=== PATIENT | male | born 1990 | race Caucasian/White ===

== ENCOUNTER 2021-07-19 19:40 | Emergency (ER) | payer SELFPAY ==
[~2021-07-19] VITALS: Ht 193 cm; Wt 27.0 kg
--- NOTE | 2021-07-19 20:51 | Diagnostic Imaging Report ---
EXAMINATION: Right ankle 3 views HISTORY: Fall COMPARISON: None available. FINDINGS: The alignment is normal. No fracture is seen. The mortise is intact. Talar dome is normal. Joint spaces are normal. IMPRESSION: 1. No fracture. Dictated by: Dictated on workstation # [id number]
--- NOTE | 2021-07-19 20:51 | Diagnostic Imaging Report ---
EXAMINATION: Right foot 3 views HISTORY: Fall and pain COMPARISON: None available. FINDINGS: There is soft tissue swelling overlying the dorsum of the foot. No acute fracture is seen. Joint spaces are normal. IMPRESSION: 1. Soft tissue swelling about the foot without acute fracture seen. Dictated by: Dictated on workstation # [id number]
--- NOTE | 2021-07-19 21:23 | ED Lower Extremity ---
General Chief Complaint: Lower Extremity Stated Complaint: FALL,RT FOOT PAIN Nursing Triage Note: Pt c/o right foot pain after getting it caught in a baby gait while he was hold his kid. Pt denies right upper leg or knee pain. Swelling noted to top of pt right foot. 2+ DP pulses. Source: patient History of Present Illness Date Seen by Provider: Jul 19, 2021 Time Seen by Provider: 21:23 Initial Comments 30-year-old male with complaints of pain and swelling to the right foot and ankle. He states he was carrying his child when he tried to step over a baby gate at home. His foot got caught on the top of the baby gate and when he tried to lift his foot to get her off of the gait the gait came with his foot and s hoe. He fell and because he was holding his child he did not use his arms to help break his fall. He had his left knee going to the back of his right calf and put off his weight onto the right foot. He heard multiple popping noises and had severe pain. He states initially his foot was angled outward but went back on its own. He had not taken anything for pain but has had the foot elevated as much as possible. he had severe pain and increasing swelling to his foot since the fall Location Injury Occurred: home Onset: this evening Severity: severe Pain/Injury Location: right foot, right ankle Method of Injury: fell Modifying Factors: Worse With Movement Allergies and Home Medications Allergies Coded Allergies: No Known Drug Allergies (Unverified , 07/19/21) Patient Home Medication List Home Medication List Reviewed: Yes Hydrocodone/Acetaminophen (Hydrocodone-Acetamin 5-325 mg) 1 Each Tablet, 1 TAB PO Q6H PRN for PAIN-SEVERE (8-10) Prescribed by: TAINA PENDLETON on 07/19/21 0442 Review of Systems Constitutional: No chills, No fever EENTM: no symptoms reported Respiratory: no symptoms reported Cardiovascular: no symptoms reported Gastrointestinal: no symptoms reported Genitourinary: no symptoms reported Musculoskeletal: see HPI Skin: No change in color Psychiatric/Neurological: Anxiety Past Rtjcnnd-Cligqs-Ncilru Hx Patient Social History Tobacco Use?: Yes Tobacco type used: Cigarettes Smoking Status: Current Everyday Smoker Use of E-Cig and/or Vaping dev: No Substance use?: No Alcohol Use?: Yes Alcohol type: Beer Alcohol Frequency: Several times a month Pt feels they are or have been: No Immunizations Up To Date Influenza Vaccine Up-to-Date: No; Not Current Past Medical History Surgeries: No Physical Exam Vital Signs Vital Signs - First Documented 07/19/21 20:20 Temp 36.7 Pulse 100 Resp 20 B/P (MAP) 158/87 (110) O2 Delivery Room Air Capillary Refill : Less Than 3 Seconds Height, Weight, BMI Height: '" Weight: lbs. oz. 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, no motor/sensory deficits, alert, oriented x 3 Skin: normal color, warm/dry Progress/Results/Core Measures Results/Orders My Orders Orders - TAINA PEDNLETON MD Foot 3 View Right (07/19/21 20:21) Ankle 3 View Right (07/19/21 20:21) Ice: Apply To Affected Area (07/19/21 20:21) Elevate Affected Extremity (07/19/21 20:21) Ibuprofen Tablet (Motrin Tablet) (07/19/21 21:36) Ct Extremity Lower Right Wo (07/19/21 21:36) Crutches (07/19/21 23:10) Ed Ortho/Other Supplies Order (07/19/21 23:10) Orthopedic Equiment (07/19/21 23:10) Rx-Hydrocodone/Apap 5-325 Mg (Rx-Vicodin (07/19/21 23:45) Medications Given in ED Current Medications Medications Dose Ordered Sig/Arin Route Start Time Stop Time Status Last Admin Dose Admin Acetaminophen/ Hydrocodone Bitart 1 ea Q6H PRN PO 07/19/21 23:45 07/19/21 23:52 DC 07/19/21 23:45 1 EA Vital Signs/I&O 07/19/21 07/19/21 20:20 23:38 Temp 36.7 Pulse 100 80 Resp 20 18 B/P (MAP) 158/87 (110) 140/78 O2 Delivery Room Air Room Air Blood Pressure Mean: 110 Progress Progress Note #1: Progress Note X-rays of the right foot and ankle were obtained to evaluate for possible bony injury since the dislocation was having pain. Patient was declining pain medicine until more was done about the injury. Progress Note #2: Progress Note FurtherX-rays did not demonstrate any definite acute fracture in his foot or ankle. However, with the significant amount of pain and swelling to his right foot as well as him describing lateral angulation of the foot will obtain a CT scan to evaluate for possible Lisfranc fracture. Progress Note #3: Progress Note CT scan does show evidence of fracture to the proximal portion of his first and second metatarsals. This was concerning for Lisfranc fracture. Placed in a cam boot to help immobilize his foot. Crutches for helping with ambulation as he needs to be nonweightbearing. Stressed the importance of elevating his foot is high and as long as possible for him. Given the phone number for Dr. Garsia of the on-call orthopedic doctor for follow-up. Counseled to call and establish with primary clinic through [facility]. Diagnostic Imaging Diagonstic Imaging: Xray Plain Films/CT/US/NM/MRI: ankle Comments [facility] [place], [place] NAME: ESEQUIEL [facility]RISTIANSON [facility] REC#: [id number] PT STATUS: REG ER : 1990 PHYSICIAN: TAINA PENDLETON MD ADMIT DATE: 07/19/21/ER FS Signed Date of Exam:07/19/21 ANKLE 3 VIEW RIGHT EXAMINATION: Right ankle 3 views HISTORY: Fall COMPARISON: None available. FINDINGS: The alignment is normal. No fracture is seen. The mortise is intact. Talar dome is normal. Joint spaces are normal. IMPRESSION: 1. No fracture. Dictated by: Dictated on workstation # [id number] Dict: 07/19/212044 Trans: 07/19/212056 [facility] [id number] Interpreted by: LE WILKS MD Electronically signed by: LE WILKS MD 07/19/212056 Reviewed: Reviewed by Me Diagonstic Imaging: Xray Plain Films/CT/US/NM/MRI: other (foot) Comments [facility] [place], [place] NAME: ESEQUIEL [facility] REC#: [id number] PT STATUS: REG ER : 1990 PHYSICIAN: TAINA PENDLETON MD ADMIT DATE: 07/19/21/ER FS Signed Date of Exam:07/19/21 FOOT 3 VIEW RIGHT EXAMINATION: Right foot 3 views HISTORY: Fall and pain COMPARISON: None available. FINDINGS: There is soft tissue swelling overlying the dorsum of the foot. No acute fracture is seen. Joint spaces are normal. IMPRESSION: 1. Soft tissue swelling about the foot without acute fracture seen. Dictated by: Dictated on workstation # [id number] Dict: 07/19/212045 Trans: 07/19/212056 [facility] [id number] Interpreted by: LE WILKS MD Electronically signed by: LE WILKS MD 07/19/212056 Reviewed: Reviewed by Me Diagonstic Imaging: CT Plain Films/CT/US/NM/MRI: other (foot and ankle) Comments Impression: Suspect Lisfranc fracture with dislocation injury. Fracture of the proximal portion of the second metatarsal and likely base of the first metatarsal. Several small bone fragments in the midfoot region with indeterminate donor s ites. Read by radiologist Dr.Manal Sofiya MD at 2218 and faxed at 2224. Reviewed: Reviewed by Me Departure Impression Primary Impression: Lisfranc fracture Additional Impressions: Fracture of first metatarsal bone of right foot Qualified Codes: S92.314A - Nondisplaced fracture of first metatarsal bone, right foot, initial encounter for closed fracture Fracture of second metatarsal bone of right foot Qualified Codes: S92.324A - Nondisplaced fracture of second metatarsal bone, right foot, initial encounter for closed fracture Disposition: 01 HOME, SELF-CARE Condition: Stable Departure-Patient Inst. Decision time for Depature: 23:29 Referrals: NO,LOCAL PHYSICIAN (PCP) Primary Care Physician MARK ANTHONY GARSIA MD [facility] [place] Patient Instructions: Foot Fracture ED, How to Use Crutches, Walking Boot Add. Discharge Instructions: Keep your foot elevated above waist level as high and as long as you can tolerate it. Use the crutches in the boot to help stabilize the fracture in your right foot. You should be nonweightbearing and avoid stepping down on your right foot even in the boot. You can call Dr. Garsia with orthopedics at [phone] and let him know you had a Lisfranc fracture to your right foot. He should be able to review the x- rays and if this is beyond what he can treat and manage then he could help refer you to an orthopedic surgical specialist. Establish care with a primary care provider at [facility] to help with your continued pain as you would not be able to work for several months with foot injury All discharge instructions reviewed with patient and/or family. Voiced unde rstanding. Scripts Hydrocodone/Acetaminophen (Hydrocodone-Acetamin 5-325 mg) 1 Each Tablet 1 TAB PO Q6H PRN for PAIN-SEVERE (8-10) for 5 Days, #20 TAB 0 Refills Prov: TAINA PENDLETON MD 07/19/21 TAINA PENDLETON MD Jul 19, 2021 21:23
[2021-07-19] MEDS ORDERED: IBUPROFEN 800 MG (MOTRIN) TAB PO STA (21:36)
[2021-07-19] MEDS ORDERED: ACHD5005 PO (23:32)
[2021-07-19 23:38] VITALS: BP 140/78
--- NOTE | 2021-07-20 07:25 | Diagnostic Imaging Report ---
PROCEDURE: CT right lower extremity without contrast. TECHNIQUE: Axially acquired CT was obtained through the right lower extremity without intravenous contrast. Coronal and sagittal reformations were also performed. Auto Exposure Controls were utilized during the CT exam to meet ALARA standards for radiation dose reduction. INDICATION: Pain and swelling of the right foot. Fall. COMPARISON: Ankle and foot radiographs performed earlier the same date. FINDINGS: Acute fractures are seen involving the base of the 1st right metatarsal and base of the 2nd right metatarsal. No definite evidence of fracture is seen in the tarsal bones. Tiny osseous fragments are noted within the area of the mid foot. No significant malalignment of the right foot is seen at this time. The right ankle joint appears intact. No focal osseous lesions are seen. There is generalized soft tissue swelling in the right foot, greatest along the dorsum. No radiopaque foreign bodies. IMPRESSION: 1. Acute fractures involving the base of the 1st and 2nd right metatarsals. Given the location of these fractures there is concern for underlying Lisfranc injury. No significant malalignment is seen at this time. Agree with overnight report. Dictated by: Dictated on workstation # [id number]
== END 2021-07-19 23:45 | disposition home or self-care (01) ==
LOC: ER FS 19:42
DX: S92.311A Displaced fracture of first metatarsal bone, right foot, initial encounter for closed fracture (principal); S92.321A Displaced fracture of second metatarsal bone, right foot, initial encounter for closed fracture; F17.210 Nicotine dependence, cigarettes, uncomplicated; W18.30XA Fall on same level, unspecified, initial encounter
CPT/HCPCS: 29515; 73610; 73630; 73700; 99284; L2114